=== PATIENT | male | born 1980 | race American Indian/Alaskan Native ===

== ENCOUNTER 2019-04-23 02:40 | Emergency (ER) | payer OTHER ==
[~2019-04-23] VITALS: Ht 165.1 cm; Wt 136.1 kg
[~2019-04-23 02:40] MED LIST: AZIT250 PO; Azithromycin250 MG PO; CARV3.125 PO; CEPH500 PO; CHLO25B PO; CLARITIN10 MG PO; CLIN300 PO; CODGUAEL PO; ERYT500 PO; FISH1000 PO; HYDACE5 PO; LISI5 PO; Metformin HCl500 M1 PO; OTC COUGH MED; PRED20 PO; PROM25 PO; Potassium Chlo10 ME1 PO
[2019-04-23] MEDS ORDERED: METF500 (03:09)
[2019-04-23 03:33] LABS: Source, Urine Voided
[2019-04-23 03:38] LABS: Bilirubin, Urine Neg (Neg); Blood, Urine 4+ (Neg); Glucose Qualitative, Urine Neg (Neg); Ketones, Urine Neg (Neg); Leukocyte Esterase, Urine 1+ (Neg); Nitrite, Urine Neg (Neg); Protein, Urine 2+ (Neg); Specific Gravity, Urine 1.025 (1.003-1.022); Urobilinogen, Urine 1+ (Normal)
[2019-04-23 03:43] LABS: Appearance, Urine Hazy (Clear); Color, Urine Yellow (P-Yellow)
[2019-04-23 03:44] LABS: Amorphous Light (0-Heavy); Bacteria Mod /hpf; Mucus Light (0-Heavy); Red Blood Cells, Urine 25-50 /hpf (0-2); Squamous Epithelial Cells Mod /hpf (Few); White Blood Cells, Urine 0-2 /hpf (0-5)
[2019-04-23 03:50] LABS: BASOPHILS ABSOLUTE AUTO 0.03 K/mm3 (0.00-0.23); BASOPHILS PERCENT AUTO 0 % (0-2); EOSINOPHILS ABSOLUTE AUTO 0.21 K/mm3 (0.00-0.68); EOSINOPHILS PERCENT AUTO 2 % (0-6); Hematocrit 49.7 % (37.0-53.0); Hemoglobin 15.2 g/dL (13.5-17.5); IMMATURE GRAN ABSOLUTE AUTO 0.03 K/mm3 (0.00-0.10); IMMATURE GRAN PERCENT AUTO 0 % (0-1); LYMPHOCYTES ABSOLUTE AUTO 1.06 K/mm3 (0.84-5.20); LYMPHOCYTES PERCENT AUTO 11 % (21-46); MONOCYTES ABSOLUTE AUTO 0.52 K/mm3 (0.16-1.47); MONOCYTES PERCENT AUTO 6 % (4-13); Mean Corpuscular HGB 28.7 pg (26.0-34.0); Mean Corpuscular HGB Conc 30.6 g/dL (31.5-36.5); Mean Corpuscular Volume 94 fL (80-100); Mean Platelet Volume 9.7 fL (9.1-12.4); NEUTROPHILS ABSOLUTE AUTO 7.42 K/mm3 (1.96-9.15); NEUTROPHILS PERCENT AUTO 80 % (41-73); Platelet Count 225 K/mm3 (150-400); RDW Coefficient Variation 15.2 % (11.7-14.2); RDW Standard Deviation 51.8 fL (35.1-46.3); White Blood Cell Count 9.27 K/mm3 (4.00-11.30)
[2019-04-23 04:08] LABS: Alanine Aminotransfer (ALT/SGP 25 U/L (12-78); Albumin, Blood 3.1 g/dL (3.4-5.0); Albumin/Globulin Ratio 0.6 (0.8-1.8); Alk Phos 96 U/L (50-136); Anion Gap 2 mmol/L (6-16); Aspartate Aminotrans (AST/SGOT 17 U/L (12-37); Bilirubin, Total 0.3 mg/dL (0.1-1.0); Blood Urea Nitrogen 16 mg/dL (8-24); Bun/Creatinine Ratio 18.4 (12.0-20.0); CO2, Blood 31 mmol/L (21-32); Calcium, Blood 8.3 mg/dL (8.5-10.1); Chloride, Blood 105 mmol/L (98-108); Creatinine, Blood 0.87 mg/dL (0.60-1.20); Globulin, Blood 4.8 g/dL (2.2-4.0); Glomerular Filtration Rate >60 (60-); Glucose, Blood 149 mg/dL (70-99); Potassium, Blood 4.5 mmol/L (3.5-5.5); Sodium, Blood 138 mmol/L (136-145); Total Protein, Blood 7.9 g/dL (6.4-8.2)
[2019-04-23] MEDS ORDERED: Keflex500 MG PO (04:59)
== END 2019-04-23 07:17 | disposition home or self-care (01) ==
LOC: ER 02:40
PROVIDERS: Emergency Medicine
DX: N20.1 Calculus of ureter (principal); J18.9 Pneumonia, unspecified organism; E11.9 Type 2 diabetes mellitus without complications; Z79.84 Long term (current) use of oral hypoglycemic drugs; Z87.891 Personal history of nicotine dependence; Z88.0 Allergy status to penicillin
CPT/HCPCS: 36415; 74176; 80053; 81001; 83690; 85025; 87086; 96374; 96375; 99284-25; A9270; A9270-GY; J1170; J1885; J2405; J7030

== ENCOUNTER 2020-06-09 18:21 | Inpatient (IN) | payer OTHER, SELFPAY ==
[~2020-06-09] VITALS: Ht 165.1 cm; Wt 155.1 kg
[~2020-06-09 18:21] MED LIST changes: -ACET325 PO; -FURO40 PO; -IPRAT-ALBUT 0.5-3 ML INH; -LISI20 PO
[2020-06-09 18:49] LABS: BASOPHILS ABSOLUTE AUTO 0.03 K/mm3 (0.00-0.23); BASOPHILS PERCENT AUTO 0 % (0-2); EOSINOPHILS ABSOLUTE AUTO 0.27 K/mm3 (0.00-0.68); EOSINOPHILS PERCENT AUTO 3 % (0-6); Hemoglobin 16.9 g/dL (13.5-17.5); IMMATURE GRAN ABSOLUTE AUTO 0.02 K/mm3 (0.00-0.10); IMMATURE GRAN PERCENT AUTO 0 % (0-1); LYMPHOCYTES ABSOLUTE AUTO 1.48 K/mm3 (0.84-5.20); LYMPHOCYTES PERCENT AUTO 15 % (21-46); MONOCYTES ABSOLUTE AUTO 0.57 K/mm3 (0.16-1.47); MONOCYTES PERCENT AUTO 6 % (4-13); Mean Corpuscular Volume 90 fL (80-100); Mean Platelet Volume 9.6 fL (9.1-12.4); NEUTROPHILS ABSOLUTE AUTO 7.86 K/mm3 (1.96-9.15); NEUTROPHILS PERCENT AUTO 77 % (41-73); Platelet Count 231 K/mm3 (150-400); RDW Coefficient Variation 17.2 % (11.7-14.2); RDW Standard Deviation 53.1 fL (35.1-46.3); White Blood Cell Count 10.23 K/mm3 (4.00-11.30)
[2020-06-09 18:58] LABS: Hematocrit 58.3 % (37.0-53.0)
[2020-06-09 19:06] LABS: Alanine Aminotransfer (ALT/SGP 44 U/L (12-78); Albumin/Globulin Ratio 0.7 (0.8-1.8); Alk Phos 106 U/L (50-136); Anion Gap 0 mmol/L (6-16); Aspartate Aminotrans (AST/SGOT 24 U/L (12-37); Bilirubin, Total 0.6 mg/dL (0.1-1.0); Blood Urea Nitrogen 13 mg/dL (8-24); Bun/Creatinine Ratio 14.3 (12.0-20.0); CO2, Blood 32 mmol/L (21-32); Calcium, Blood 8.3 mg/dL (8.5-10.1); Chloride, Blood 109 mmol/L (98-108); Creatinine, Blood 0.91 mg/dL (0.60-1.20); Globulin, Blood 4.5 g/dL (2.2-4.0); Glomerular Filtration Rate >60 (60-); Glucose, Blood 107 mg/dL (70-99); Potassium, Blood 4.6 mmol/L (3.5-5.5); Sodium, Blood 141 mmol/L (136-145); Total Protein, Blood 7.5 g/dL (6.4-8.2)
[2020-06-10 00:14] LABS: Source, Urine Clean Catch
[2020-06-10 00:17] LABS: Bilirubin, Urine Neg (Neg); Blood, Urine 1+ (Neg); Glucose Qualitative, Urine Neg (Neg); Ketones, Urine Neg (Neg); Leukocyte Esterase, Urine Neg (Neg); Nitrite, Urine Neg (Neg); Protein, Urine 3+ (Neg); Specific Gravity, Urine 1.025 (1.003-1.022); Urobilinogen, Urine 1+ (Normal)
[2020-06-10 00:18] LABS: Appearance, Urine Clear (Clear); Color, Urine Yellow (P-Yellow)
[2020-06-10 00:25] LABS: Amorphous Light (0-Heavy); Bacteria Few /hpf; Mucus Light (0-Heavy); Squamous Epithelial Cells Few /hpf (Few); White Blood Cells, Urine 0-2 /hpf (0-5)
--- NOTE | 2020-06-10 02:37 | NUR ---
ADMIT NOTE PT ADMITTED FROM ER THIS SHIFT. HANDOFF RECEIVED FROM ER NURSE VERONICA. PT TRANSPORTED TO FLOOR VIA GURNEY. PT ORIENTED TO UNIT. CALL BUTTON WITHIN REACH. PERSONAL POSSESSIONS WITH PT. 3 LPM O2 VIA NC ORDERED. TELEMETRY MONITORING APPLIED AND VERIFIED ACTIVE. BIPAP ORDERED FROM RESPIRATORY IS APPLIED.
--- NOTE | 2020-06-10 04:09 | NUR ---
SHIFT SUMMARY ADMITTED FROM ER THIS SHIFT FOR HYPOXIC RESPIRATORY FAILURE. FULL CODE. TELEMETRY:NSR @ 75 BPM. BIPAP AT [facility] AT HOME. THIS SHIFT HE DID DESATURATE TO 84% WITH OUR CPAP, THE O2 BLEED IN WAS INCREASED. PT IS INDEPENDENT IN ROOM, BRP. HE HAS A HX OF DM2 (NONCOMPLIANT WITH GLUCOSE CHECKS AND METFORMIN USE), RAVI, AND CHF. HE IS MORBIDLY OBESE. HIS COVID TEST WAS NEGATIVE AT THE [facility]. HE IS A&O X4.
[2020-06-10 05:30] LABS: BASOPHILS ABSOLUTE AUTO 0.03 K/mm3 (0.00-0.23); BASOPHILS PERCENT AUTO 0 % (0-2); EOSINOPHILS ABSOLUTE AUTO 0.32 K/mm3 (0.00-0.68); EOSINOPHILS PERCENT AUTO 3 % (0-6); Hemoglobin 16.6 g/dL (13.5-17.5); IMMATURE GRAN ABSOLUTE AUTO 0.03 K/mm3 (0.00-0.10); IMMATURE GRAN PERCENT AUTO 0 % (0-1); LYMPHOCYTES ABSOLUTE AUTO 1.41 K/mm3 (0.84-5.20); LYMPHOCYTES PERCENT AUTO 14 % (21-46); MONOCYTES ABSOLUTE AUTO 0.71 K/mm3 (0.16-1.47); MONOCYTES PERCENT AUTO 7 % (4-13); Mean Corpuscular HGB 26.9 pg (26.0-34.0); Mean Corpuscular HGB Conc 29.3 g/dL (31.5-36.5); Mean Corpuscular Volume 92 fL (80-100); Mean Platelet Volume 9.3 fL (9.1-12.4); NEUTROPHILS PERCENT AUTO 75 % (41-73); Platelet Count 214 K/mm3 (150-400); RDW Coefficient Variation 17.7 % (11.7-14.2); RDW Standard Deviation 54.9 fL (35.1-46.3); Red Blood Cell Count 6.17 M/mm3 (4.30-5.90)
[2020-06-10 05:46] LABS: Hematocrit 56.7 % (37.0-53.0)
[2020-06-10 06:25] LABS: Alanine Aminotransfer (ALT/SGP 42 U/L (12-78); Albumin, Blood 2.9 g/dL (3.4-5.0); Albumin/Globulin Ratio 0.7 (0.8-1.8); Alk Phos 103 U/L (50-136); Anion Gap 0 mmol/L (6-16); Aspartate Aminotrans (AST/SGOT 17 U/L (12-37); Blood Urea Nitrogen 15 mg/dL (8-24); Bun/Creatinine Ratio 16.9 (12.0-20.0); CO2, Blood 38 mmol/L (21-32); Calcium, Blood 8.6 mg/dL (8.5-10.1); Chloride, Blood 104 mmol/L (98-108); Creatinine, Blood 0.89 mg/dL (0.60-1.20); Globulin, Blood 4.3 g/dL (2.2-4.0); Glomerular Filtration Rate >60 (60-); Glucose, Blood 110 mg/dL (70-99); Sodium, Blood 142 mmol/L (136-145); Total Protein, Blood 7.2 g/dL (6.4-8.2)
--- NOTE | 2020-06-10 13:04 | NUR ---
Echocardiogram completed.
--- NOTE | 2020-06-10 17:23 | NUR ---
SHIFT SUMMARY NO ACUTE CHANGES THIS SHIFT, VSS, REMAINS ON 3.5 L/MIN AND SATING 90-91%. PT DID NOT RECIEVE ANY LASIX DURING MY SHIFT BECAUSE HE RECIEVED A DOSE THE NIGHT BEFORE. PT REPORTED HE WAS UP ABOUT EVERY HOUR URINATING LAST NIGHT BUT WAS NOT USING A URINAL BECAUSE TO MEASURE OUTPUT BECAUSE HE DID NOT HAVE ONE. PT HAS BEEN INSTRUCTED TO USE URINAL FROM NOW FOR MORE ACCURATE I&O MEASURING. PT REPORTS HE FEELS THE SWELLING IN HIS LEGS HAS DECREASED AND THEY DO NOT FEEL TIGHT. HE ALSO DENIES SOB OR ANY RESPIRATORY OR CARDIAC DISTRESS. PT REMAINS INDEPENDENT IN THE ROOM AND CALLS APPROPRIATELY IF NEEDED. WAS PROVIDED TYLENOL X1 THIS SHIFT FOR A HEADACHE, TX WAS EFFECTIVE. PT IS NOW SITTING UP IN BED WATCHING TV. CALL LIGHT IS WITHIN REACH.
--- NOTE | 2020-06-11 05:20 | NUR ---
SHIFT SUMMARY: VSS. AFEB. 02 91% ON 3.5L VIA NC WHILE AWAKE AND 4 L BLEED IN TO CPAP. PT WEARING CPAP ALL NIGHT. LS DIM THROUGHOUT. PT DENIES COUGH. +2 PITTING EDEMA TO BLE, PT STATES THAT SWELLING IN LE IS NOTICIBLY IMPROVED IS SOB. STATES HE IS FEELING GENERALLY BETTER. INDEPENDENT IN ROOM. PT ENCOURAGED TO VOID IN URINALS FOR OUTPUT TRACKING, HAS BEEN COOPERATIVE W/ THIS. NEGATIVE FLUID BALANCE. WCTM.
[2020-06-11 05:33] LABS: BASOPHILS ABSOLUTE AUTO 0.02 K/mm3 (0.00-0.23); BASOPHILS PERCENT AUTO 0 % (0-2); EOSINOPHILS ABSOLUTE AUTO 0.28 K/mm3 (0.00-0.68); EOSINOPHILS PERCENT AUTO 3 % (0-6); Hemoglobin 16.4 g/dL (13.5-17.5); IMMATURE GRAN ABSOLUTE AUTO 0.04 K/mm3 (0.00-0.10); IMMATURE GRAN PERCENT AUTO 0 % (0-1); LYMPHOCYTES ABSOLUTE AUTO 1.03 K/mm3 (0.84-5.20); LYMPHOCYTES PERCENT AUTO 11 % (21-46); MONOCYTES ABSOLUTE AUTO 0.56 K/mm3 (0.16-1.47); MONOCYTES PERCENT AUTO 6 % (4-13); Mean Corpuscular HGB 26.5 pg (26.0-34.0); Mean Corpuscular HGB Conc 29.2 g/dL (31.5-36.5); Mean Corpuscular Volume 91 fL (80-100); Mean Platelet Volume 9.4 fL (9.1-12.4); NEUTROPHILS PERCENT AUTO 80 % (41-73); Platelet Count 202 K/mm3 (150-400); RDW Coefficient Variation 17.1 % (11.7-14.2); RDW Standard Deviation 54.4 fL (35.1-46.3); Red Blood Cell Count 6.18 M/mm3 (4.30-5.90); White Blood Cell Count 9.43 K/mm3 (4.00-11.30)
[2020-06-11 05:52] LABS: Hematocrit 56.2 % (37.0-53.0)
[2020-06-11 05:59] LABS: Alanine Aminotransfer (ALT/SGP 34 U/L (12-78); Albumin, Blood 2.7 g/dL (3.4-5.0); Albumin/Globulin Ratio 0.6 (0.8-1.8); Alk Phos 101 U/L (50-136); Anion Gap 1 mmol/L (6-16); Aspartate Aminotrans (AST/SGOT 21 U/L (12-37); Bilirubin, Total 0.9 mg/dL (0.1-1.0); Blood Urea Nitrogen 15 mg/dL (8-24); Bun/Creatinine Ratio 20.3 (12.0-20.0); CO2, Blood 36 mmol/L (21-32); Calcium, Blood 8.4 mg/dL (8.5-10.1); Chloride, Blood 102 mmol/L (98-108); Creatinine, Blood 0.74 mg/dL (0.60-1.20); Globulin, Blood 4.3 g/dL (2.2-4.0); Glomerular Filtration Rate >60 (60-); Glucose, Blood 103 mg/dL (70-99); Potassium, Blood 4.5 mmol/L (3.5-5.5); Sodium, Blood 139 mmol/L (136-145)
[2020-06-11] MEDS ORDERED: ACET325 PO (14:45)
[2020-06-11] MEDS ORDERED: FURO40 PO (14:46)
[2020-06-11] MEDS ORDERED: IPRAT-ALBUT 0.5-3 ML INH (14:47)
[2020-06-11] MEDS ORDERED: LISI20 PO (14:48)
--- NOTE | 2020-06-11 16:45 | NUR ---
DISCHARGE SUMMARY PT AxOx4. PLEASANT AND COOPERATIVE WITH CARE. INDEPENDENT IN THE ROOM. PT DISCHARGING HOME TODAY. PT ON 2L O2 VIA NC, BREATHING WITHOUT DIFFICULTY. HOME O2 EVAL DONE, DETERMINED PT NEEDS TO GO HOME ON O2. CASI SORTOVERED O2 PRIOR TO DC. DC INSTRUCTIONS DISCUSSED WITH PATIENT, INCLUDING DC MEDICATIONS, MEDICAL EQUIPMENT NEEDED AND FOLLOW UP APPOINTMENTS. UNABLE TO MAKE FOLLOW UP APPOINTMENT WITH PCP. MESSAGE LEFT FOR CONTROLLER OPERATIONS AND HR MANAGER TO FOLLOW UP ON SATURDAY DR CERVANTES WANTS PATIENT TO BE SEEN FOR FOLLOW UP IN 2-3 DAYS. PT VERBALIZES UNDERSTANDING OF INSTRUCTIONS. NEBULIZER AND ADDITIONAL O2 TO BE DELIVERED TO PT'S. PT DENIES ANY FURTHER QUESTIONS AT THIS TIME. VITALS REVIEWED. PT SAFELY ESCORTED OUT VIA WC WITH THIS RN. HOME THIS EVENING
== END 2020-06-11 16:50 | disposition home or self-care (01) | DRG 291 ==
LOC: ER 18:21 → MEDS 22:41 → ER 22:41 → MEDS 22:48
PROVIDERS: Internal Medicine; Physician Assistant; ADMIT Internal Medicine
DX: I11.0 Hypertensive heart disease with heart failure (principal); J96.01 Acute respiratory failure with hypoxia; Z68.43 Body mass index [BMI] 50.0-59.9, adult; I50.33 Acute on chronic diastolic (congestive) heart failure; I42.0 Dilated cardiomyopathy; G47.33 Obstructive sleep apnea (adult) (pediatric); I16.0 Hypertensive urgency; E11.9 Type 2 diabetes mellitus without complications; E66.9 Obesity, unspecified; Z88.0 Allergy status to penicillin; Z87.891 Personal history of nicotine dependence
CPT/HCPCS: 36415; 80053; 81001; 82947; 85025; 85379; 93005; 93010; 93306; 94660; 94761; 94762; 96372; 96374; 99285-25; A9270; G0378; J1650; J1940

== ENCOUNTER → 2020-06-09 | Outpatient (CLI) | payer OTHER ==
[~2020-06-09] MED LIST changes: +ACET325 PO; +FURO40 PO; +IPRAT-ALBUT 0.5-3 ML INH; +Keflex500 MG PO; +LISI20 PO; +METF500
[2020-06-09 17:10] LABS: Anion Gap 2 mmol/L (6-16); Blood Urea Nitrogen 14 mg/dL (8-24); CO2, Blood 36 mmol/L (21-32); Calcium, Blood 8.8 mg/dL (8.5-10.1); Chloride, Blood 106 mmol/L (98-108); Creatinine, Blood 1.08 mg/dL (0.60-1.20); Glomerular Filtration Rate >60 (60-); Glucose, Blood 106 mg/dL (70-99); Potassium, Blood 4.6 mmol/L (3.5-5.5); Sodium, Blood 144 mmol/L (136-145)
[2020-06-09 17:13] LABS: Troponin I <0.017 ng/mL (0.000-0.040)
== END | disposition home or self-care (01) ==
LOC: LAB SHORT 16:52
PROVIDERS: Physician Assistant
DX: I50.9 Heart failure, unspecified (principal); R06.00 Dyspnea, unspecified
CPT/HCPCS: 80048; 83880; 84484

== ENCOUNTER 2021-02-06 10:45 | Inpatient (IN) | payer OTHER ==
[~2021-02-06] VITALS: Ht 152.4 cm; Wt 154.2 kg
[~2021-02-06 10:45] MED LIST changes: +ACET325 PO; +FURO40 PO; +IPRAT-ALBUT 0.5-3 ML INH; +LISI20 PO
[2021-02-06 11:58] LABS: BASOPHILS ABSOLUTE AUTO 0.03 K/mm3 (0.00-0.23); BASOPHILS PERCENT AUTO 0 % (0-2); EOSINOPHILS ABSOLUTE AUTO 0.25 K/mm3 (0.00-0.68); EOSINOPHILS PERCENT AUTO 3 % (0-6); Hemoglobin 16.7 g/dL (13.5-17.5); IMMATURE GRAN ABSOLUTE AUTO 0.02 K/mm3 (0.00-0.10); IMMATURE GRAN PERCENT AUTO 0 % (0-1); LYMPHOCYTES ABSOLUTE AUTO 1.24 K/mm3 (0.84-5.20); LYMPHOCYTES PERCENT AUTO 12 % (21-46); MONOCYTES ABSOLUTE AUTO 0.56 K/mm3 (0.16-1.47); MONOCYTES PERCENT AUTO 6 % (4-13); Mean Corpuscular HGB 26.8 pg (26.0-34.0); Mean Corpuscular HGB Conc 28.7 g/dL (31.5-36.5); Mean Corpuscular Volume 93 fL (80-100); Mean Platelet Volume 9.5 fL (9.1-12.4); NEUTROPHILS ABSOLUTE AUTO 7.89 K/mm3 (1.96-9.15); NEUTROPHILS PERCENT AUTO 79 % (41-73); Platelet Count 200 K/mm3 (150-400); RDW Coefficient Variation 16.2 % (11.7-14.2); RDW Standard Deviation 54.4 fL (35.1-46.3); Red Blood Cell Count 6.23 M/mm3 (4.30-5.90); White Blood Cell Count 9.99 K/mm3 (4.00-11.30)
[2021-02-06 12:03] LABS: Hematocrit 58.1 % (37.0-53.0)
[2021-02-06 12:23] LABS: Anion Gap 4 mmol/L (6-16); Blood Urea Nitrogen 15 mg/dL (8-24); Bun/Creatinine Ratio 16.9 (12.0-20.0); CO2, Blood 37 mmol/L (21-32); Calcium, Blood 8.7 mg/dL (8.5-10.1); Chloride, Blood 103 mmol/L (98-108); Creatinine, Blood 0.89 mg/dL (0.60-1.20); Glomerular Filtration Rate >60 (60-); Glucose, Blood 173 mg/dL (70-99); Potassium, Blood 4.3 mmol/L (3.5-5.5); Sodium, Blood 144 mmol/L (136-145); Troponin I <0.015 ng/mL (0.000-0.040)
[2021-02-06 12:43] LABS: Influenza A, PCR NEGATIVE (NEGATIVE); Influenza B, PCR NEGATIVE (NEGATIVE); Resp Syncytial Virus, PCR NEGATIVE (NEGATIVE); SARS-Cov-2 (COVID-19) PCR, MMC NEGATIVE (NEGATIVE)
[2021-02-07 00:57] LABS: BASOPHILS ABSOLUTE AUTO 0.03 K/mm3 (0.00-0.23); BASOPHILS PERCENT AUTO 0 % (0-2); EOSINOPHILS ABSOLUTE AUTO 0.33 K/mm3 (0.00-0.68); EOSINOPHILS PERCENT AUTO 3 % (0-6); Hemoglobin 17.1 g/dL (13.5-17.5); IMMATURE GRAN ABSOLUTE AUTO 0.03 K/mm3 (0.00-0.10); IMMATURE GRAN PERCENT AUTO 0 % (0-1); LYMPHOCYTES ABSOLUTE AUTO 1.41 K/mm3 (0.84-5.20); LYMPHOCYTES PERCENT AUTO 12 % (21-46); MONOCYTES ABSOLUTE AUTO 0.69 K/mm3 (0.16-1.47); MONOCYTES PERCENT AUTO 6 % (4-13); Mean Corpuscular HGB 27.2 pg (26.0-34.0); Mean Corpuscular HGB Conc 29.6 g/dL (31.5-36.5); Mean Corpuscular Volume 92 fL (80-100); Mean Platelet Volume 9.7 fL (9.1-12.4); NEUTROPHILS ABSOLUTE AUTO 8.95 K/mm3 (1.96-9.15); NEUTROPHILS PERCENT AUTO 78 % (41-73); Platelet Count 227 K/mm3 (150-400); RDW Coefficient Variation 16.2 % (11.7-14.2); RDW Standard Deviation 53.1 fL (35.1-46.3); Red Blood Cell Count 6.29 M/mm3 (4.30-5.90); White Blood Cell Count 11.44 K/mm3 (4.00-11.30)
[2021-02-07 01:00] LABS: Hematocrit 57.8 % (37.0-53.0)
[2021-02-07 01:45] LABS: Anion Gap 5 mmol/L (6-16); Blood Urea Nitrogen 15 mg/dL (8-24); Bun/Creatinine Ratio 16.4 (12.0-20.0); CO2, Blood 38 mmol/L (21-32); Chloride, Blood 97 mmol/L (98-108); Creatinine, Blood 0.91 mg/dL (0.60-1.20); Glomerular Filtration Rate >60 (60-); Glucose, Blood 137 mg/dL (70-99); Potassium, Blood 4.4 mmol/L (3.5-5.5); Sodium, Blood 140 mmol/L (136-145); Troponin I <0.015 ng/mL (0.000-0.040)
--- NOTE | 2021-02-07 06:20 | NUR ---
KEKE HAD SOME LIGHT CRACLES IN HIS LUNGS UPON AUSCULTATION. SLEPT WITH HIS CPAP BUT HIS SPO2 REMAINED BETWEEN 84-89. WAS PUT ON A BIPAP BY RT THEN HIS SPO2 SUSTAINED 89-92.
--- NOTE | 2021-02-07 11:32 | NUR ---
Provided heart failure diet education. Reviewed low sodium diet recommendations and top contributors of dietary sodium. Encouraged pt to prepare extra dinner to have leftovers to take to work (if storage space is available) instead of getting lunch from vending machine. Discussed that cooking meals at home is the best way to limit sodium. Encouraged pt to read nutrition labels at store to determine sodium content of products. Reviewed ways to limit sodium when eating out. Pt asked questions and was eager to learn. Moderate compliance expected.
--- NOTE | 2021-02-07 18:48 | NUR ---
SHIFT SUMMARY PT AA&OX4. AMBULATING AROUND ROOM FREELY. NO C/O PAIN, SOB OR N/V VOICED AT THIS TIME. VSS. NAD NOTED. RECEIVED IV LASIX AND VOIDING LARGE AMOUNTS. TOLERATED MEALS WELL. MEDIUM SIZE BM TODAY. WILL CONTINUE TO MONITOR IN CARE
--- NOTE | 2021-02-08 04:28 | NUR ---
KEEK SLEPT WITH HIS BIPAP, SPO2 REMAINED IN THE 90'S. HE GOT UP AND STRETCH A COUPLE OF TIMES BETWEEN 1-2AM BECAUSE OF SOME BACK PAIN AND CRAMP IN HIS LEGS THEN WENT BACK TO SLEEP FOR THE REST OF THE NIGHT. VITALS WERE STABLE
[2021-02-08 04:58] LABS: BASOPHILS ABSOLUTE AUTO 0.03 K/mm3 (0.00-0.23); BASOPHILS PERCENT AUTO 0 % (0-2); EOSINOPHILS ABSOLUTE AUTO 0.48 K/mm3 (0.00-0.68); EOSINOPHILS PERCENT AUTO 5 % (0-6); Hemoglobin 16.8 g/dL (13.5-17.5); IMMATURE GRAN ABSOLUTE AUTO 0.01 K/mm3 (0.00-0.10); IMMATURE GRAN PERCENT AUTO 0 % (0-1); LYMPHOCYTES ABSOLUTE AUTO 1.39 K/mm3 (0.84-5.20); LYMPHOCYTES PERCENT AUTO 13 % (21-46); MONOCYTES ABSOLUTE AUTO 0.68 K/mm3 (0.16-1.47); MONOCYTES PERCENT AUTO 7 % (4-13); Mean Corpuscular HGB 27.4 pg (26.0-34.0); Mean Corpuscular HGB Conc 30.1 g/dL (31.5-36.5); Mean Corpuscular Volume 91 fL (80-100); Mean Platelet Volume 10.3 fL (9.1-12.4); NEUTROPHILS ABSOLUTE AUTO 7.79 K/mm3 (1.96-9.15); NEUTROPHILS PERCENT AUTO 75 % (41-73); Platelet Count 207 K/mm3 (150-400); RDW Coefficient Variation 16.3 % (11.7-14.2); RDW Standard Deviation 51.5 fL (35.1-46.3); Red Blood Cell Count 6.13 M/mm3 (4.30-5.90); White Blood Cell Count 10.38 K/mm3 (4.00-11.30)
[2021-02-08 05:01] LABS: Hematocrit 55.8 % (37.0-53.0)
[2021-02-08 05:58] LABS: Anion Gap 5 mmol/L (6-16); Blood Urea Nitrogen 18 mg/dL (8-24); Bun/Creatinine Ratio 19.2 (12.0-20.0); CO2, Blood 41 mmol/L (21-32); Chloride, Blood 91 mmol/L (98-108); Creatinine, Blood 0.94 mg/dL (0.60-1.20); Glomerular Filtration Rate >60 (60-); Glucose, Blood 108 mg/dL (70-99); Magnesium, Blood 1.8 mg/dL (1.6-2.4); Phosphorus, Blood 5.2 mg/dL (2.5-4.9); Sodium, Blood 137 mmol/L (136-145)
--- NOTE | 2021-02-08 10:54 | NUR ---
Echocardiogram completed.
--- NOTE | 2021-02-08 18:39 | NUR ---
SHIFT SUMMARY PATIENT AAOX4. SITTING UP AT BEDSIDE EATING DINNER TRAY. ON O2 AT 6L AND SATS STILL DROPPING IN THE HIGH 80S AFTER ACTIVITY BUT 93% AT REST. HAS NO C/O PAin, SOB OR N/V VOICED AT THIS TIME. DID TEACHING ON SODIUM DIET, WATER INTAKE AND RESTRICTIONS AND HOW TO WEIGHT DAILY AND NOTICE IF HE IS RETAINING ANY FLUIDS. WILL CONTINUE TO MONITOR IN CARE
--- NOTE | 2021-02-08 20:00 | NUR ---
ASSUMED CARE. AOX3, SITTING UP IN CHAIR. INDEPENDENT IN ROOM. LS FINE CRACKLES SCATTERED T/O. DYSPNEA WITH EXERTION, RECOVERY TIME W/IN 1 MIN. SATS AVERAGE IS 91-94% ON 6L OF HF NC. BASE IS RA. NO COUGH NOTED. DENIES CONGESTION. NO ORTHOPNEA AT THIS TIME. ENCOURAGED DEEP BREATHING EXERCISES. DISCUSSED CHF MONITORING AND PREVENTION. BLE EDEMA TIGHT NON-PITTING, FAINT PEDAL PULSES. GOOD APPETITE, FLUID INTAKE. VS WNL. SNACK GIVEN. CALL LIGHT WITH IN REACH.
--- NOTE | 2021-02-09 05:28 | NUR ---
SHIFT SUMMARY: VS WNL, AFEBRILE. INDEPENDENT IN THE ROOM. BS 121. LS FINE CRACKLES. DYSPENIC W/ EXERTION. WAS ABLE TO WALK TO BATHROOM AND BACK LAST NIGHT NO O2 SATS DROPPED TO HIGH 80'S, JUST STANDING 95% RA. WHEN TALKING MID 80'S. AVERAGE SATS ON 6L HF NC 94%. CPAP WHEN SLEEPING, AVERAGE SATS 87-90%. NO COUGH. BLE EDEMA TIGHT, NON-PITTING, WAS UP IN CHAIR MOST OF DAY. DISCUSSED ELEVATION, CHF MONITORING AND PREVENTION MEASURES. SHIFT INTAKE 450, OUTPUT 1100. ABLE TO MAKE NEEDS KNOWN. CALL LIGHT REMAINS IN REACH.
[2021-02-09 06:45] LABS: Anion Gap 7 mmol/L (6-16); Blood Urea Nitrogen 20 mg/dL (8-24); Bun/Creatinine Ratio 21.4 (12.0-20.0); CO2, Blood 41 mmol/L (21-32); Chloride, Blood 89 mmol/L (98-108); Creatinine, Blood 0.93 mg/dL (0.60-1.20); Glomerular Filtration Rate >60 (60-); Glucose, Blood 92 mg/dL (70-99); Phosphorus, Blood 4.6 mg/dL (2.5-4.9); Potassium, Blood 4.1 mmol/L (3.5-5.5); Sodium, Blood 137 mmol/L (136-145)
--- NOTE | 2021-02-09 18:28 | NUR ---
SHIFT SUMMARY PATIENT AA&OX4. SITTING UP AT BEDSIDE IN CHAIR EATING DINNER. BLOOD SUGAR WNL. O2 AT 5L BNC AND SATS 95%. BLOOD PRESSURE ELEVATED SINCE AM AND NOTIFIED WILL BE STARTED ON NEW BP MEDS AT BEDTIME. HE HAS NO C/O PAIN, N/V, SOB OR DISCOMFORT VOICED AT THIS TIME. INSTRUCTED ON 1500 CC FLUID RESTRICTION. AMBULATING AROUND ROOM WITH NO ISSUES. WILL CONTINUE TO MONITOR IN CARE.
--- NOTE | 2021-02-10 05:18 | NUR ---
SHIFT SUMMARY PT A/O X4; PLEASANT AND COOPERATIVE WITH CARE. IND IN THE ROOM. ON 5 LITERS HIGH FLOW O2 DURING THE DAY AND BIPAP AT [facility]. HARD FOR THE BIPAP TO GET A GOOD SEAL DUE TO THE PATIENT'S [place]. PT SATTING IN THE LOW 90'S AT REST AND IN THE LOW 80'S WITH ACTIVITY. NEW BP MEDICATION STARTED DUE TO PATIENT'S HTN. VSS. WILL REPORT TO PHILLIP RN.
[2021-02-10] MEDS ORDERED: AZIT250 PO (14:25)
[2021-02-10] MEDS ORDERED: Prinivil10 MG PO (14:26)
[2021-02-10] MEDS ORDERED: CEPH500 PO (14:27)
--- NOTE | 2021-02-10 16:55 | NUR ---
discharge reviewed with pt. he verbalized understanding meds and instruct. iv pulled intact. no tele. pt dressed self. has o2 tank for home trip. will call when ready
--- NOTE | 2021-02-10 17:13 | NUR ---
DISCHARGE HOME NOTE PATIENT AAOX4. HAS NO C/O PAIN, SOB, N/V OR DISCOMFT VOICED. DISCHARGE PAPERWORK DISCUSSED WITH HIM. IV REMOVED FROM RIGHT AC. AMBULATES WITH NO ISSUES. VSS. NAD NOTED. BEING DISCHARGED WITH HOME O2 APPROVAL AND PORTABLE O2 TANK HAS BEEN DELIVERED TO ROOM AT BEDSIDE AND TAUGHT HOW TO USE WITH NO QUESTIONS ASKED. TAUGHT FLUID RESTRICTIONS AND SODIUM CONTROLL DIET. BEING ESCORTED OFF UNIT VIA WHEELCHAIR BY THE NURSE ADVOCATE TO CAR WITH FAMILY.
== END 2021-02-10 17:05 | disposition home or self-care (01) | DRG 291 ==
LOC: ER 10:45 → ERHOLD 15:52 → MEDS 18:51
PROVIDERS: Internal Medicine; Student in an Organized Health Care Education/Training Program; ADMIT Family Medicine
DX: I11.0 Hypertensive heart disease with heart failure (principal); J96.01 Acute respiratory failure with hypoxia; I50.33 Acute on chronic diastolic (congestive) heart failure; J18.9 Pneumonia, unspecified organism; Z68.44 Body mass index [BMI] 60.0-69.9, adult; G47.33 Obstructive sleep apnea (adult) (pediatric); E66.01 Morbid (severe) obesity due to excess calories; I42.0 Dilated cardiomyopathy; I27.20 Pulmonary hypertension, unspecified; E11.9 Type 2 diabetes mellitus without complications; Z20.822 Contact with and (suspected) exposure to COVID-19; Z91.11 Patient's noncompliance with dietary regimen; Z88.0 Allergy status to penicillin; Z71.3 Dietary counseling and surveillance
CPT/HCPCS: 0241U; 36415; 71045; 80048; 80069; 82947; 83036; 83735; 83880; 84145; 84443; 84484; 85025; 85379; 93005; 93010; 93971; 94660; 94761; 94762; 96374; 99285-25; A9270; C8929; J0696; J1650; J1815; J1940; Q9957

== ENCOUNTER → 2021-04-28 | Outpatient (CLI) | payer OTHER ==
[~2021-04-28] MED LIST changes: +Prinivil10 MG PO
[2021-04-28 13:50] LABS: Alanine Aminotransfer (ALT/SGP 32 U/L (12-78); Albumin, Blood 2.9 g/dL (3.4-5.0); Albumin/Globulin Ratio 0.7 (0.8-1.8); Alk Phos 101 U/L (40-126); Anion Gap 4 mmol/L (6-16); Aspartate Aminotrans (AST/SGOT 16 U/L (12-37); Bilirubin, Total 0.8 mg/dL (0.1-1.0); Blood Urea Nitrogen 14 mg/dL (8-24); Bun/Creatinine Ratio 17.9 (12.0-20.0); CO2, Blood 38 mmol/L (21-32); Calcium, Blood 8.3 mg/dL (8.5-10.1); Chloride, Blood 98 mmol/L (98-108); Creatinine, Blood 0.78 mg/dL (0.60-1.20); Globulin, Blood 4.3 g/dL (2.2-4.0); Glomerular Filtration Rate >60 (60-); Glucose, Blood 164 mg/dL (70-99); Potassium, Blood 4.6 mmol/L (3.5-5.5); Sodium, Blood 140 mmol/L (136-145); Total Protein, Blood 7.2 g/dL (6.4-8.2)
[2021-04-28 14:08] LABS: BASOPHILS ABSOLUTE AUTO 0.04 K/mm3 (0.00-0.23); BASOPHILS PERCENT AUTO 0 % (0-2); EOSINOPHILS PERCENT AUTO 2 % (0-6); Hemoglobin 17.3 g/dL (13.5-17.5); IMMATURE GRAN ABSOLUTE AUTO 0.05 K/mm3 (0.00-0.10); IMMATURE GRAN PERCENT AUTO 1 % (0-1); LYMPHOCYTES PERCENT AUTO 11 % (21-46); MONOCYTES ABSOLUTE AUTO 0.48 K/mm3 (0.16-1.47); MONOCYTES PERCENT AUTO 5 % (4-13); Mean Corpuscular HGB 26.6 pg (26.0-34.0); Mean Corpuscular HGB Conc 28.9 g/dL (31.5-36.5); Mean Corpuscular Volume 92 fL (80-100); Mean Platelet Volume 9.5 fL (9.1-12.4); NEUTROPHILS ABSOLUTE AUTO 7.99 K/mm3 (1.96-9.15); NEUTROPHILS PERCENT AUTO 81 % (41-73); Platelet Count 217 K/mm3 (150-400); RDW Coefficient Variation 18.4 % (11.7-14.2); RDW Standard Deviation 58.7 fL (35.1-46.3); White Blood Cell Count 9.86 K/mm3 (4.00-11.30)
[2021-04-28 14:30] LABS: Hematocrit 59.8 % (37.0-53.0)
== END | disposition home or self-care (01) ==
LOC: LAB SHORT 13:31 → LAB 13:31
PROVIDERS: Chiropractor
DX: R06.09 Other forms of dyspnea (principal)
CPT/HCPCS: 80053; 83880; 84484; 85025; 85379

== ENCOUNTER 2021-05-01 05:31 | Inpatient (IN) | payer OTHER ==
[~2021-05-01] VITALS: Ht 167.6 cm; Wt 146.8 kg
[2021-05-01 06:23] LABS: BASOPHILS ABSOLUTE AUTO 0.05 K/mm3 (0.00-0.23); BASOPHILS PERCENT AUTO 1 % (0-2); EOSINOPHILS ABSOLUTE AUTO 0.34 K/mm3 (0.00-0.68); EOSINOPHILS PERCENT AUTO 4 % (0-6); IMMATURE GRAN ABSOLUTE AUTO 0.04 K/mm3 (0.00-0.10); IMMATURE GRAN PERCENT AUTO 0 % (0-1); LYMPHOCYTES ABSOLUTE AUTO 1.05 K/mm3 (0.84-5.20); LYMPHOCYTES PERCENT AUTO 11 % (21-46); MONOCYTES ABSOLUTE AUTO 0.65 K/mm3 (0.16-1.47); MONOCYTES PERCENT AUTO 7 % (4-13); Mean Corpuscular HGB 26.6 pg (26.0-34.0); Mean Corpuscular HGB Conc 28.3 g/dL (31.5-36.5); Mean Corpuscular Volume 94 fL (80-100); Mean Platelet Volume 9.4 fL (9.1-12.4); NEUTROPHILS ABSOLUTE AUTO 7.19 K/mm3 (1.96-9.15); NEUTROPHILS PERCENT AUTO 77 % (41-73); Platelet Count 226 K/mm3 (150-400); RDW Coefficient Variation 18.1 % (11.7-14.2); RDW Standard Deviation 59.3 fL (35.1-46.3); Red Blood Cell Count 6.39 M/mm3 (4.30-5.90); White Blood Cell Count 9.32 K/mm3 (4.00-11.30)
[2021-05-01 06:47] LABS: Alanine Aminotransfer (ALT/SGP 26 U/L (12-78); Albumin, Blood 2.9 g/dL (3.4-5.0); Albumin/Globulin Ratio 0.6 (0.8-1.8); Alk Phos 96 U/L (50-136); Anion Gap 1 mmol/L (6-16); Aspartate Aminotrans (AST/SGOT 13 U/L (12-37); Bilirubin, Total 0.5 mg/dL (0.1-1.0); Blood Urea Nitrogen 17 mg/dL (8-24); Bun/Creatinine Ratio 20.1 (12.0-20.0); CO2, Blood 42 mmol/L (21-32); Chloride, Blood 96 mmol/L (98-108); Creatinine, Blood 0.85 mg/dL (0.60-1.20); Globulin, Blood 4.5 g/dL (2.2-4.0); Glomerular Filtration Rate >60 (60-); Glucose, Blood 167 mg/dL (70-99); Potassium, Blood 4.8 mmol/L (3.5-5.5); Sodium, Blood 139 mmol/L (136-145); Total Protein, Blood 7.4 g/dL (6.4-8.2)
[2021-05-01 10:02] LABS: Influenza A, PCR NEGATIVE (NEGATIVE); Influenza B, PCR NEGATIVE (NEGATIVE); Resp Syncytial Virus, PCR NEGATIVE (NEGATIVE); SARS-Cov-2 (COVID-19) PCR, MMC NEGATIVE (NEGATIVE)
--- NOTE | 2021-05-01 18:10 | NUR ---
SHIFT SUMMARY PATIENT ADMITTED FROM ER AT 1110. PATIENT SETTLED INTO ROOM. PATIENT DENIES PAIN, NAUSEA, AND SHORTNESS OF BREATH. PATIENT ON 4L VIA N/C. PATIENT MAINTAINING SATS ABOVE 90%. PATIENT DESATS WITH ACTIVITY. CPAP IN ROOM FOR HS. PATIENT IS INDEPENDENT IN ROOM. PATIENT IS EATING AND DRINKING WELL. PATIENT IS PLEASANT AND COOPERATIVE WITH CARE.
--- NOTE | 2021-05-01 21:27 | NUR ---
IV SITE FLUSHED BUT SLUGGISH. WILL MONITOR
--- NOTE | 2021-05-02 04:03 | NUR ---
NETWORK CONTRACT MANAGER SUMMARY HAS BEEN AWAKE AT INTERVALS, USUALLY DUE TO PULSE OX BEEPING DUE TO O2 SATS DROPPING INTO MID 80'S. CPAP IN USE. RECEIVED ATIVAN PO X 1 PER MD ORDERS FOR SLEEP. MED WAS EFFECTIVE. CALL LIGHT IN REACH. VSS. HOB REMAINS ELEVATED FOR BREATHING COMFORT. WILL CONTINUE TO MONITOR
[2021-05-02 04:43] LABS: BASOPHILS ABSOLUTE AUTO 0.04 K/mm3 (0.00-0.23); BASOPHILS PERCENT AUTO 0 % (0-2); EOSINOPHILS ABSOLUTE AUTO 0.36 K/mm3 (0.00-0.68); EOSINOPHILS PERCENT AUTO 4 % (0-6); Hemoglobin 17.8 g/dL (13.5-17.5); IMMATURE GRAN ABSOLUTE AUTO 0.02 K/mm3 (0.00-0.10); IMMATURE GRAN PERCENT AUTO 0 % (0-1); LYMPHOCYTES ABSOLUTE AUTO 1.41 K/mm3 (0.84-5.20); LYMPHOCYTES PERCENT AUTO 14 % (21-46); MONOCYTES ABSOLUTE AUTO 0.69 K/mm3 (0.16-1.47); MONOCYTES PERCENT AUTO 7 % (4-13); Mean Corpuscular HGB 26.4 pg (26.0-34.0); Mean Corpuscular HGB Conc 28.3 g/dL (31.5-36.5); Mean Corpuscular Volume 93 fL (80-100); Mean Platelet Volume 9.5 fL (9.1-12.4); NEUTROPHILS ABSOLUTE AUTO 7.63 K/mm3 (1.96-9.15); NEUTROPHILS PERCENT AUTO 75 % (41-73); Platelet Count 213 K/mm3 (150-400); RDW Coefficient Variation 18.9 % (11.7-14.2); RDW Standard Deviation 59.8 fL (35.1-46.3); Red Blood Cell Count 6.74 M/mm3 (4.30-5.90); White Blood Cell Count 10.15 K/mm3 (4.00-11.30)
[2021-05-02 04:52] LABS: Hematocrit 62.8 % (37.0-53.0)
[2021-05-02 05:09] LABS: Alanine Aminotransfer (ALT/SGP 27 U/L (12-78); Albumin, Blood 3.2 g/dL (3.4-5.0); Albumin/Globulin Ratio 0.7 (0.8-1.8); Alk Phos 96 U/L (50-136); Anion Gap 5 mmol/L (6-16); Aspartate Aminotrans (AST/SGOT 15 U/L (12-37); Bilirubin, Total 1.3 mg/dL (0.1-1.0); Blood Urea Nitrogen 20 mg/dL (8-24); Bun/Creatinine Ratio 23.4 (12.0-20.0); CO2, Blood 36 mmol/L (21-32); Calcium, Blood 9.1 mg/dL (8.5-10.1); Chloride, Blood 94 mmol/L (98-108); Creatinine, Blood 0.85 mg/dL (0.60-1.20); Globulin, Blood 4.8 g/dL (2.2-4.0); Glomerular Filtration Rate >60 (60-); Glucose, Blood 118 mg/dL (70-99); Magnesium, Blood 2.1 mg/dL (1.6-2.4); Potassium, Blood 4.2 mmol/L (3.5-5.5); Sodium, Blood 135 mmol/L (136-145)
--- NOTE | 2021-05-02 17:30 | NUR ---
SHIFT SUMMARY PATIENT IS ALERT AND ORIENTED X4. PATIENT HAS HAD NO ACUTE EVENTS THIS SHIFT. RESPIRATORY THERAPY HAS BEEN WORKING WITH PATIENT TO MAINTAIN OPTIMAL OXYGEN THERAPY. PATIENT IS CURRENTLY ON A BIPAP. VITAL SIGNS REVIEWED. BED IN LOCKED AND LOWEST POSITION. CALL LIGHT IN PLACE. PATIENT HAS BEEN RESTING MOST OF SHIFT WITH VARYING OXYGEN NEEDS. WILL MONITOR UNTIL SHIFT CHANGE.
--- NOTE | 2021-05-02 19:23 | NUR ---
AWAKE. HAVING BREATHING TREATMENT. RT AT BEDSIDE. HOB AT 45 DEGREES. CALL LIGHT IN REACH
--- NOTE | 2021-05-03 04:30 | NUR ---
HOTEL SECURITY OFFICER SUMMARY POWERGLIDE PLACED IN LEFT ARM DUE TO PREVIOUS IV ACCESS OCCLUSION. CONTINUES TO HAVE SLEEP APNEA, O2 SATS DROPPED INTO THE 70'S WHEN HIS NASALCANNULA WAS FOUND OUT OF HIS NOSTRILS. AWAKENED AND CANNULA PLACED BACK INTO NARES. SATS INCREASED TO THE 90'S AGAIN. ALERT AND ORIENTED. VSS. UP AD RADHA, ENCOURAGED TO COMPLY WITH O2 REGIMINE. CALL LIGHT IN REACH
[2021-05-03 07:56] LABS: Mean Corpuscular HGB 26.7 pg (26.0-34.0); Mean Corpuscular HGB Conc 28.9 g/dL (31.5-36.5); Mean Corpuscular Volume 93 fL (80-100); Mean Platelet Volume 9.7 fL (9.1-12.4); Platelet Count 212 K/mm3 (150-400); RDW Coefficient Variation 18.6 % (11.7-14.2); Red Blood Cell Count 6.73 M/mm3 (4.30-5.90); White Blood Cell Count 9.26 K/mm3 (4.00-11.30)
[2021-05-03 08:01] LABS: Hematocrit 62.3 % (37.0-53.0)
[2021-05-03 08:10] LABS: Anion Gap 1 mmol/L (6-16); Blood Urea Nitrogen 29 mg/dL (8-24); Bun/Creatinine Ratio 28.4 (12.0-20.0); CO2, Blood 41 mmol/L (21-32); Calcium, Blood 9.1 mg/dL (8.5-10.1); Chloride, Blood 94 mmol/L (98-108); Creatinine, Blood 1.02 mg/dL (0.60-1.20); Glomerular Filtration Rate >60 (60-); Glucose, Blood 112 mg/dL (70-99); Potassium, Blood 4.2 mmol/L (3.5-5.5); Sodium, Blood 136 mmol/L (136-145)
[2021-05-03 13:23] LABS: PCO2 Arterial 87.3 mmHg (35-45)
--- NOTE | 2021-05-03 13:30 | NUR ---
notified abg is in computer.
--- NOTE | 2021-05-03 15:48 | NUR ---
ALERT. ORIENTED. ON OXYGEN AND CONTINUOUS SAT MONITOR.ADVISED TO TAKE DEEP BREATH TROUGH NOSE WHEN HE HEARS MONITOR GO OFF. PATIENT COMPLIANT. MEDS ADJUSTED TO P.O. FROM IV. INDEPENDENT IN ROOM WITH STEADY GAIT TO BR. AWARE TO USE URINAL ON DIURETIC. NO C/O C.P. OR DISCOMFORT. ABLE TO MAKE HIS NEEDS KNOWN. TM
--- NOTE | 2021-05-04 04:31 | NUR ---
ALCOHOLISM WORKER SUMMARY PATIENT HAD A FAIR SHIFT. NO COMPLAINTS OVERNIGHT. HAD HIS CPAP ON. INITIALLY WAS NOT SATURATING ADEQUATELY. HE HAD TO SHAVE HIS [place] TO ACHIEVE THE NEEDED SEAL AROUND HIS MOUTH AND NOSE. HIS V/S WERE STABLE AND HE COOPERATED WITH CARE. WILL CONTINUE TO MONITOR HIM.
[2021-05-04 05:01] LABS: Hemoglobin 17.9 g/dL (13.5-17.5); Mean Corpuscular HGB 26.8 pg (26.0-34.0); Mean Corpuscular HGB Conc 29.4 g/dL (31.5-36.5); Mean Corpuscular Volume 91 fL (80-100); Mean Platelet Volume 9.3 fL (9.1-12.4); Platelet Count 199 K/mm3 (150-400); RDW Coefficient Variation 18.6 % (11.7-14.2); RDW Standard Deviation 58.8 fL (35.1-46.3); Red Blood Cell Count 6.68 M/mm3 (4.30-5.90); White Blood Cell Count 9.28 K/mm3 (4.00-11.30)
[2021-05-04 05:06] LABS: Hematocrit 60.9 % (37.0-53.0)
[2021-05-04 05:46] LABS: Anion Gap 4 mmol/L (6-16); Blood Urea Nitrogen 31 mg/dL (8-24); Bun/Creatinine Ratio 32.3 (12.0-20.0); CO2, Blood 37 mmol/L (21-32); Calcium, Blood 9.1 mg/dL (8.5-10.1); Chloride, Blood 93 mmol/L (98-108); Creatinine, Blood 0.96 mg/dL (0.60-1.20); Glomerular Filtration Rate >60 (60-); Glucose, Blood 121 mg/dL (70-99); Potassium, Blood 4.1 mmol/L (3.5-5.5); Sodium, Blood 134 mmol/L (136-145)
--- NOTE | 2021-05-04 18:21 | NUR ---
SHIFT SUMMARY NO ACUTE CHANGES THIS SHIFT. PT REPORTS FEELING MUCH BETTER AND HAS NO COMPLAINTS. PT REMAINS ON 6 LITERS O2 BUT DOES NOT FEEL DYSPNEIC. SATTING AT AROUND 91%. VSS. WILL REPORT TO PHILLIP RN.
--- NOTE | 2021-05-05 02:37 | NUR ---
FIRE ALARM OPERATOR SUMMARY PATIENT HAD A FAIR SHIFT. HE IS ALERT ORIENTED. HE DID NOT LODGE ANY COMPLAIN OVERNGHT. HE HAD HIS CPAP ON OVERNIGHT. WILL CONTINUE TO MONITOR HIM.
[2021-05-05 04:58] LABS: Hemoglobin 17.7 g/dL (13.5-17.5); Mean Corpuscular HGB Conc 29.7 g/dL (31.5-36.5); Mean Corpuscular Volume 91 fL (80-100); Mean Platelet Volume 9.3 fL (9.1-12.4); Platelet Count 189 K/mm3 (150-400); RDW Coefficient Variation 18.6 % (11.7-14.2); RDW Standard Deviation 57.9 fL (35.1-46.3); Red Blood Cell Count 6.56 M/mm3 (4.30-5.90)
[2021-05-05 04:59] LABS: Hematocrit 59.5 % (37.0-53.0)
[2021-05-05 05:46] LABS: Anion Gap 4 mmol/L (6-16); Blood Urea Nitrogen 30 mg/dL (8-24); CO2, Blood 34 mmol/L (21-32); Calcium, Blood 8.7 mg/dL (8.5-10.1); Chloride, Blood 97 mmol/L (98-108); Creatinine, Blood 0.91 mg/dL (0.60-1.20); Glomerular Filtration Rate >60 (60-); Glucose, Blood 113 mg/dL (70-99); Potassium, Blood 4.3 mmol/L (3.5-5.5); Sodium, Blood 135 mmol/L (136-145)
[2021-05-05] MEDS ORDERED: FURO20 PO (12:31)
[2021-05-05] MEDS ORDERED: LISI5 PO (12:32)
--- NOTE | 2021-05-05 17:47 | NUR ---
PATIENT STABLE ON 3L/OXYGEN. VITALS STABLE, CBG WNL NO SSI GIVEN. MD DISCHARGED PATIENT WITH HOME OXYGEN AND NEW CPAP MACHINE. RN PROVIDED DISCHARGE EDUCATION, PATIENT VERBILIZED UNDERSTANDING. LEFT UNIT AT 1520PM.
== END 2021-05-05 17:15 | disposition home or self-care (01) | DRG 291 ==
LOC: ER 05:31 → MEDS 08:47 → ENPENDDIS 05-05 11:49 → MEDS 05-05 17:15
PROVIDERS: Emergency Medicine; ADMIT Internal Medicine
PROC: 5A09457 Assistance with Respiratory Ventilation, 24-96 Consecutive Hours, Continuous Positive Airway Pressure (ICD-10-PCS; principal; 2021-05-01)
DX: I13.0 Hypertensive heart and chronic kidney disease with heart failure and stage 1 through stage 4 chronic kidney disease, or unspecified chronic kidney disease (principal); J96.01 Acute respiratory failure with hypoxia; I50.33 Acute on chronic diastolic (congestive) heart failure; Z68.43 Body mass index [BMI] 50.0-59.9, adult; Z20.822 Contact with and (suspected) exposure to COVID-19; I27.22 Pulmonary hypertension due to left heart disease; I50.814 Right heart failure due to left heart failure; J44.9 Chronic obstructive pulmonary disease, unspecified; E66.01 Morbid (severe) obesity due to excess calories; G47.33 Obstructive sleep apnea (adult) (pediatric); E11.22 Type 2 diabetes mellitus with diabetic chronic kidney disease; N18.9 Chronic kidney disease, unspecified; Z88.0 Allergy status to penicillin; Z91.19 Patient's noncompliance with other medical treatment and regimen; Z79.899 Other long term (current) drug therapy; Z87.891 Personal history of nicotine dependence
CPT/HCPCS: 0241U; 36415; 36600; 71045; 80048; 80053; 82803; 82947; 83036; 83735; 83880; 84484; 85025; 85027; 93005; 93010; 94640; 94660; 94761; 94762; 96374; 96375; 99285-25; A9270; C1751; J1120; J1650; J1940

== ENCOUNTER → 2023-10-29 | Outpatient (CLI) | payer OTHER ==
[~2023-10-29] MED LIST changes: +FURO20 PO
[2023-10-29 16:52] LABS: BASOPHILS ABSOLUTE AUTO 0.02 K/mm3 (0.00-0.23); BASOPHILS PERCENT AUTO 0 % (0-2); EOSINOPHILS ABSOLUTE AUTO 0.56 K/mm3 (0.00-0.68); EOSINOPHILS PERCENT AUTO 6 % (0-6); Hematocrit 49.1 % (37.0-53.0); Hemoglobin 14.9 g/dL (13.5-17.5); IMMATURE GRAN ABSOLUTE AUTO 0.02 K/mm3 (0.00-0.10); IMMATURE GRAN PERCENT AUTO 0 % (0-1); LYMPHOCYTES ABSOLUTE AUTO 1.07 K/mm3 (0.84-5.20); LYMPHOCYTES PERCENT AUTO 12 % (21-46); MONOCYTES ABSOLUTE AUTO 0.47 K/mm3 (0.16-1.47); MONOCYTES PERCENT AUTO 5 % (4-13); Mean Corpuscular HGB 28.7 pg (26.0-34.0); Mean Corpuscular HGB Conc 30.3 g/dL (31.5-36.5); Mean Corpuscular Volume 94 fL (80-100); NEUTROPHILS ABSOLUTE AUTO 6.89 K/mm3 (1.96-9.15); NEUTROPHILS PERCENT AUTO 76 % (41-73); Platelet Count 204 K/mm3 (150-400); RDW Coefficient Variation 18.6 % (11.7-14.2); RDW Standard Deviation 56.6 fL (35.1-46.3); White Blood Cell Count 9.03 K/mm3 (4.00-11.30)
[2023-10-29 16:56] LABS: Calcium, Blood 8.7 mg/dL (8.5-10.1); Creatinine, Blood 0.93 mg/dL (0.60-1.20); Potassium, Blood 3.9 mmol/L (3.5-5.5)
== END | disposition home or self-care (01) ==
LOC: LAB SHORT 16:48 → LAB 16:48
PROVIDERS: Family Medicine
DX: I50.9 Heart failure, unspecified (principal); L03.90 Cellulitis, unspecified
CPT/HCPCS: 80048; 83880; 85025

== ENCOUNTER 2024-03-26 16:24 | Inpatient (IN) | payer OTHER ==
[~2024-03-26] VITALS: Ht 165.1 cm; Wt 148.4 kg
[2024-03-26 17:17] LABS: BASOPHILS ABSOLUTE AUTO 0.02 K/mm3 (0.00-0.23); BASOPHILS PERCENT AUTO 0 % (0-2); EOSINOPHILS ABSOLUTE AUTO 0.16 K/mm3 (0.00-0.68); EOSINOPHILS PERCENT AUTO 2 % (0-6); Hematocrit 53.1 % (37.0-53.0); Hemoglobin 16.1 g/dL (13.5-17.5); IMMATURE GRAN ABSOLUTE AUTO 0.04 K/mm3 (0.00-0.10); IMMATURE GRAN PERCENT AUTO 1 % (0-1); LYMPHOCYTES ABSOLUTE AUTO 1.39 K/mm3 (0.84-5.20); LYMPHOCYTES PERCENT AUTO 16 % (21-46); MONOCYTES PERCENT AUTO 6 % (4-13); Mean Corpuscular HGB Conc 30.3 g/dL (31.5-36.5); Mean Corpuscular Volume 93 fL (80-100); Mean Platelet Volume 8.9 fL (9.1-12.4); NEUTROPHILS ABSOLUTE AUTO 6.37 K/mm3 (1.96-9.15); NEUTROPHILS PERCENT AUTO 75 % (41-73); NRBC ABSOLUTE 0.03 K/mm3 (0.00-0.02); NRBC Auto 0.4 /100 WBC (0.0-0.2); Platelet Count 215 K/mm3 (150-400); RDW Standard Deviation 54.7 fL (35.1-46.3); Red Blood Cell Count 5.74 M/mm3 (4.30-5.90); White Blood Cell Count 8.48 K/mm3 (4.00-11.30)
[2024-03-26] MEDS ORDERED: FARXIGA5 MG PO (17:52)
[2024-03-26] MEDS ORDERED: METFORMIN HCL500 M3 PO (17:52)
[2024-03-26] MEDS ORDERED: Prinivil10 MG PO (17:53)
[2024-03-26] MEDS ORDERED: FUROSEMIDE40 MG PO (17:57)
[2024-03-26 18:01] LABS: Albumin, Blood 3.3 g/dL (3.4-5.0); Albumin/Globulin Ratio 0.8 (0.8-1.8); Bilirubin, Total 0.9 mg/dL (0.1-1.0); Bun/Creatinine Ratio 12.6 (12.0-20.0); Calcium, Blood 8.2 mg/dL (8.5-10.1); Creatinine, Blood 0.87 mg/dL (0.60-1.20); Globulin, Blood 4.2 g/dL (2.2-4.0); Potassium, Blood 3.8 mmol/L (3.5-5.5); Total Protein, Blood 7.5 g/dL (6.4-8.2)
[2024-03-26] MEDS ORDERED: Furosemide 10 MG/ML 4ML Vial IV ONE (20:00)
[2024-03-26] MEDS ORDERED: Ondansetron HCl 2 MG / ML 2ML Vial IV PRN (21:10)
[2024-03-26] MEDS ORDERED: Furosemide 10 MG/ML 4ML Vial IV SCH (22:00)
[2024-03-27] VITALS (7 sets, daily range): BP systolic 129–164; BP diastolic 64–95
[2024-03-27 00:23] LABS: Adenovirus Not Detected (NOT DETECT); Bordetella pertussis Not Detected (NOT DETECT); Chlamydophila pneumoniae Not Detected (NOT DETECT); Coronavirus 229E Not Detected (NOT DETECT); Coronavirus HKU1 Not Detected (NOT DETECT); Coronavirus NL63 Not Detected (NOT DETECT); Coronavirus OC43 Not Detected (NOT DETECT); Human Metapneumovirus Not Detected (NOT DETECT); Human Rhinovirus/Enterovirus Not Detected (NOT DETECT); Influenza A/2009-H1 Not Detected (NOT DETECT); Influenza A/H1 Not Detected (NOT DETECT); Influenza A/H3 Not Detected (NOT DETECT); Influenza B Not Detected (NOT DETECT); Mycoplasma pneumoniae Not Detected (NOT DETECT); Parainfluenza Virus 1 Not Detected (NOT DETECT); Parainfluenza Virus 2 Not Detected (NOT DETECT); Parainfluenza Virus 3 Not Detected (NOT DETECT); Parainfluenza Virus 4 Not Detected (NOT DETECT); Respiratory Syncytial Virus Not Detected (NOT DETECT); SARS-Cov-2 (COVID-19), BioFire Not Detected (NOT DETECT)
[2024-03-27 06:09] LABS: BASOPHILS ABSOLUTE AUTO 0.02 K/mm3 (0.00-0.23); BASOPHILS PERCENT AUTO 0 % (0-2); EOSINOPHILS ABSOLUTE AUTO 0.27 K/mm3 (0.00-0.68); EOSINOPHILS PERCENT AUTO 3 % (0-6); Hematocrit 54.9 % (37.0-53.0); Hemoglobin 16.7 g/dL (13.5-17.5); IMMATURE GRAN ABSOLUTE AUTO 0.05 K/mm3 (0.00-0.10); IMMATURE GRAN PERCENT AUTO 1 % (0-1); LYMPHOCYTES PERCENT AUTO 14 % (21-46); MONOCYTES ABSOLUTE AUTO 0.59 K/mm3 (0.16-1.47); MONOCYTES PERCENT AUTO 7 % (4-13); Mean Corpuscular HGB 28.6 pg (26.0-34.0); Mean Corpuscular HGB Conc 30.4 g/dL (31.5-36.5); Mean Corpuscular Volume 94 fL (80-100); Mean Platelet Volume 9.5 fL (9.1-12.4); NEUTROPHILS PERCENT AUTO 76 % (41-73); NRBC ABSOLUTE 0.02 K/mm3 (0.00-0.02); NRBC Auto 0.2 /100 WBC (0.0-0.2); Platelet Count 223 K/mm3 (150-400); RDW Standard Deviation 56.9 fL (35.1-46.3); Red Blood Cell Count 5.84 M/mm3 (4.30-5.90); White Blood Cell Count 8.73 K/mm3 (4.00-11.30)
[2024-03-27 06:20] LABS: Bun/Creatinine Ratio 11.6 (12.0-20.0); Calcium, Blood 8.7 mg/dL (8.5-10.1); Creatinine, Blood 0.95 mg/dL (0.60-1.20); Magnesium, Blood 2.2 mg/dL (1.6-2.4); Potassium, Blood 4.1 mmol/L (3.5-5.5)
[2024-03-27] MEDS ORDERED: Insulin Human Lispro 100 Units/ML 3ML Syringe SC SCH (07:30)
[2024-03-27] MEDS ORDERED: Furosemide 10 MG/ML 4ML Vial IV SCH ×2 (09:00)
[2024-03-27] MEDS ORDERED: Enoxaparin 40 MG/0.4 ML SYR SC SCH (09:00)
[2024-03-27] MEDS ORDERED: Acetaminophen 325 MG TABLET PO ONE (09:20)
[2024-03-27] MEDS ORDERED: Acetaminophen 325 MG TABLET PO PRN (09:20)
[2024-03-27] MEDS ORDERED: Ibuprofen 600 MG Tab PO ONE (09:20)
--- NOTE | 2024-03-27 18:33 | NUR ---
ADMISSION: REPORT RECEIVED FROM SOCIAL MEDIA EXECUTIVE. PT TO UNIT AT ABOUT 1130. A/O , VSS. CONT. BIOX APPLIED. PT NEEDING 6L 02 VIA NC TO MAINTAIN SP02 ABOVE 90%. PT DENIES SOB WHILE AT REST, NO INCREASED WOB NOTED. PT ORIENTED TO ROOM AND CALL LIGHT. REMINDED OF FLUID RESTRICTION ORDERS. TELE BOX APPLIED AND VERIFIED BY TRADING MANAGER STUDENT. PT INSTRUCTED TO USE CALL LIGHT
--- NOTE | 2024-03-27 18:39 | NUR ---
SUMMARY: NO ACUTE CHANGE SINCE ADMIT. RT SET UP CPAP AT BEDSIDE FOR SLEEP. IV LASIX GIVEN TONIGHT. VSS, PT USING CALL LIGHT TO MAKE NEEDS KNOWN
[2024-03-27] MEDS ORDERED: Lisinopril 10 MG Tab PO SCH (19:00)
[2024-03-28 00:14] VITALS: BP 143/87
[2024-03-28 04:23] VITALS: BP 128/80
[2024-03-28 06:08] LABS: Bun/Creatinine Ratio 16.3 (12.0-20.0); Calcium, Blood 8.8 mg/dL (8.5-10.1); Creatinine, Blood 1.29 mg/dL (0.60-1.20); Potassium, Blood 4.2 mmol/L (3.5-5.5)
[2024-03-28] MEDS ORDERED: Insulin Human Lispro 100 Units/ML 3ML Syringe SC SCH (07:30)
[2024-03-28 07:32] VITALS: BP 114/64
--- NOTE | 2024-03-28 07:52 | NUR ---
SHIFT SUMMARY NOC. PT ADMITTED FOR HYPOXIA. PT A/O X3-4 AND WAS FORGETTFUL OF DATE/TIME. PT ON 6L VIA N/C WHILE AWAKE AND SWITCHED TO CPAP WHILE ASLEEP. PT FAILED CPAP AND WAS DESATTING AND UPGRADED TO BIPAP WITH INCREASED O2. PT DENIES SOB OR CHEST PAIN, SOB NOTED ON EXERTION. PT IS SBA FOR WEAKNESS AND CORD MANAGEMENT. PT VOIDING URINE AND RESTRICTING ORAL FLUIDS. CALL LIGHT IN REACH.
[2024-03-28] MEDS ORDERED: Empagliflozin 10 MG TAB PO SCH (09:00)
[2024-03-28] MEDS ORDERED: Loratadine 10 MG Tab PO SCH (09:00)
[2024-03-28] MEDS ORDERED: Citalopram Hydrobromide 20 MG Tab PO SCH (09:00)
[2024-03-28] MEDS ORDERED: Furosemide 10 MG/ML 4ML Vial IV SCH (13:00)
[2024-03-28 13:04] VITALS: BP 94/59
[2024-03-28] MEDS ORDERED: N-Acetylcysteine 600 MG CAP PO SCH (15:00)
[2024-03-28 15:35] VITALS: BP 132/74
--- NOTE | 2024-03-28 16:31 | NUR ---
SHIFT SUMMARY THIS RN ASSUMED CARE AT APPROX 0715. NO ACUTE EVENTS SINCE ASSUMPTION OF CARE. PATIENT ALERT AND ORIENTED X4. COMMUNICATING NEEDS EFFECTIVELY. INDEPENDENT IN ROOM - CALLS APPROPRIATELY FOR ASSISTANCE PRN. SHOWERED THIS AFTERNOON. VSS. TELEMETRY SHOWING SINUS 70s-90s PER TOBACCO DRIER OPERATOR - NO EVENTS REPORTED. SBP 90s-130s. MAP >65. DENIES CHEST PAIN, PRESSURE. +2 EDEMA TO BLE - IV LASIX ADMINISTERED PER EMAR. 1200ML FLUID RESTRICTION IN PLACE - PATIENT COMPLIANT. ON 5-7L VIA NC, SATs 88-94%. MILD SHORTNESS OF BREATH WITH MOBILITY. AWAITING CT PE STUDY TO BE COMPLETED THIS AFTERNOON. VOIDING. UP IN RECLINER MAJORITY OF THE DAY. CALL LIGHT IN REACH.
[2024-03-28 19:26] VITALS: BP 129/73
[2024-03-28] MEDS ORDERED: LevoFLOXacin 750 MG/D5W 150ML 150 ML IV ONE (20:00)
--- NOTE | 2024-03-29 00:26 | NUR ---
TRANSFER FROM ROOM 210 TO 364. REPORT GIVEN TO MARTHA DE SOUZA. BELONGINGS GATHERED ALONG WITH MEDS AND CHART. HR ASSISTANT NOTIFIED OF ROOM CHANGE.
--- NOTE | 2024-03-29 00:40 | NUR ---
PT TRANSFER NOTE 43 R OLD MALE TRANSFERRED TO UNIT FROM SURGICAL UNIT WITH DX OF HYPOXIA. PT ON O2. ALERT TO QUSTIONS ASKED. VSS. CALL LIGHT IN REACH. RAILS UP X 2 AND BED IN LOW POSITION FO SAFETY. WILL MONITOR.
--- NOTE | 2024-03-29 03:28 | NUR ---
COAT FELLER SUMMARY VSS. WAS TRANSFERRED TO FLOOR FROM SURGICAL UNIT WITH DX OF HYPOXIA. PLACED ON BIPAP WITH O2 LEAD IN - MONITORED BY RT. O2 WHEN AWAKE IS 7L/ MIN PER NC OTHERWISE. HOB ELEVATED FOR RESP COMFORT. UP AD RADHA, USES CALL LIGHT WHEN NEED OOB TO GO TO THE BATHROOM. ABLE TO REPOSITION SELF IN BED WITHOUT ASSIST. HAS BEEN RESTING WITH OCCASIONAL INTERRUPTIONS DUE TO BIPAP ALARM WHEN SATS DROP. CALL LIGHT IN REACH, RAILS UP X 2 AND BED IN LOW POSITOIN FOR SAFETY. WILL CONT TO MONITOR
[2024-03-29 04:05] VITALS: BP 137/84
[2024-03-29] MEDS ORDERED: rOPINIRole HCl 0.25 MG Tab PO PRN (05:10)
[2024-03-29] MEDS ORDERED: FentaNYL Citrate 50 MCG/ML 2 ML Injection IV PRN (05:10)
[2024-03-29 05:12] LABS: Bun/Creatinine Ratio 26.7 (12.0-20.0); Calcium, Blood 8.9 mg/dL (8.5-10.1); Creatinine, Blood 0.98 mg/dL (0.60-1.20); Potassium, Blood 4.3 mmol/L (3.5-5.5)
[2024-03-29 07:57] VITALS: BP 130/70
[2024-03-29] MEDS ORDERED: Furosemide 10 MG/ML 4ML Vial IV SCH (09:00)
[2024-03-29] MEDS ORDERED: Cyclobenzaprine HCl 10 MG Tab PO PRN (10:10)
[2024-03-29 15:29] VITALS: BP 106/61
--- NOTE | 2024-03-29 16:57 | NUR ---
PATIENT IS ALERT AND ORIENTED AND COOPERATIVE WITH CARE. ON 5L O2 VIA NC AT THIS TIME AT 94%. STARTED THE SHIFT ON 7L VIA NC. CONT. PULSE OX IN PLACE. UP IN THE CHAIR SINCE 06:00. INDEPENDENT TO THE BATHROOM, USES THE URINAL. POWERGLIDE WAS PPLACED THIS MORNING. THE PATINT'S DAUGHTER WAS AT THE BEDSIDE MOST OF THE SHIFT, PLAYING CARDS WITH THE PATIENT. VSS. RT FOLLOWING. WILL CONTINUE TO MONITOR
[2024-03-29 20:00] VITALS: BP 104/70
[2024-03-29] MEDS ORDERED: LevoFLOXacin 750 MG/D5W 150ML 150 ML IV SCH (21:00)
[2024-03-30 03:32] VITALS: BP 136/80
--- NOTE | 2024-03-30 03:34 | NUR ---
RUBBER GOODS INSPECTOR SUMMARY VSS. REMAINS ON O2 PER NC WHILE UP IN BEDSIDE CHAIR, AND ON BIPAP/CPAP AT NIGHT SHILE IN BED WITH O2 BLEED IN. INTERMITTENT RAVI, ENCOURAGED TO TAKE DEEP BREATHS WHEN O2 SATS DROP AND ALARM GOES OFF. UP TO BATHROOM AD RADHA. ABLE TO REPOSITION SELF IN BED WIHTOUT ASSIST, BUT ASKS FOR ASSIST ANY WAY. OTHERWISE HAS BEEN RESTING IN BED WITH FEW INTERRUPTIONS. CALL LIGHT IN REACH, RAILS UP X 2 AND BED IN LOW POSITION FOR SAFETY. WILL CONT TO MONITOR
[2024-03-30] MEDS ORDERED: Pantoprazole Sodium 20 MG Tab PO SCH (06:00)
[2024-03-30 06:49] LABS: Bun/Creatinine Ratio 27.1 (12.0-20.0); Calcium, Blood 9.2 mg/dL (8.5-10.1); Creatinine, Blood 0.92 mg/dL (0.60-1.20); Potassium, Blood 4.6 mmol/L (3.5-5.5)
[2024-03-30 07:48] VITALS: BP 130/63
[2024-03-30] MEDS ORDERED: PredniSONE 20 MG Tab PO SCH (09:00)
[2024-03-30 15:02] VITALS: BP 106/66
--- NOTE | 2024-03-30 16:50 | NUR ---
SHIFT SUMMARY A&OX4, COOPERATIVE WITH CARE. NO ACUTE CHANGES THIS SHIFT. DENIES CP/PRESSURE, HEADACHE, OR DIZZINESS. SOB WITH EXERTION. LIORLY SATTING 92% ON 5L O2 VIA NC. USES CPAP AT NIGHT WITH 1OL BLEED IN. REPORTS THAT HE FEELS EXTRA TIRED TODAY. ABLE TO TRANSFER FROM BED TO CHAIR WITHOUT PHYSCIAL HELP. BLE PITTING EDEMA NOTED. LASIX ON BOARD. URINE OUTPUT ADEQUATE. 1200 TOTAL FLUID RESTRICTION; PATIENT COMPLIANT. DR ESCOTO DISCUSSED WITH PATIENT THAT HE WILL BE HERE FOR 2-3 MORE DAYS TO BE MONITORED. PATIENT V/U. PATIENT CURRENTLY ASLEEP IN CHAIR. CALL LIGHT WITHIN REACH.
[2024-03-30 19:38] VITALS: BP 109/66
[2024-03-30] MEDS ORDERED: LevoFLOXacin 750 MG Tab PO SCH (21:00)
[2024-03-30] MEDS ORDERED: Enoxaparin 40 MG/0.4 ML SYR SC SCH (21:00)
[2024-03-31 02:35] VITALS: BP 131/78
--- NOTE | 2024-03-31 03:23 | NUR ---
VEST BASTER SUMMARY VSS. MED TELE SR IN THE 'S. UP AD RADHA TO BATHROOM. ON O2 5L/NC, KEPT PULLING OFF NASAL CANNULA, VOICED "BLEEDING" FROM NOSTRILS (NOT SEEN BY NURSE). WAS ENCOURAGED TO KEEP O2 ON. LATER WHEN IN BED, ASKED FOR BIPAP TO BE PLACED. HAS BEEN RESTING QUIETLY WITH FEW INTERRUPTIONS. HOB ELEVATED FOR RESP COMFORT. WILL CONTINUE TO MONITOR.
[2024-03-31 06:07] LABS: Calcium, Blood 9.3 mg/dL (8.5-10.1); Creatinine, Blood 0.91 mg/dL (0.60-1.20); Magnesium, Blood 2.3 mg/dL (1.6-2.4); Potassium, Blood 4.1 mmol/L (3.5-5.5)
[2024-03-31 07:17] VITALS: BP 124/81
--- NOTE | 2024-03-31 16:55 | NUR ---
SHIFT SUMMARY PT AOX4, COOPERATIVE, ABLE TO MAKE NEEDS KNOWN. HAS SPENT MOST OF SHIFT UP IN CHAIR. ON 5L O2, SATTING APPROX 93%. CONTINENT, USING URINAL AND BATHROOM APPROPRIATELY. NOT EXPRESSED ANY PAIN NEEDS FOR SHIFT. STILL ON 1200 FLUID RESTRICTION AND IS WELL AWARE OF THIS. BED IN LOWEST POSITION, CALL LIGHT WITHIN REACH.
[2024-03-31 19:29] VITALS: BP 124/78
[2024-04-01 03:44] VITALS: BP 110/76
--- NOTE | 2024-04-01 06:14 | NUR ---
SHIFT SUMMARY PT AOX4. AT START OF SHIFT, PT WAS SITTING IN RECLINER WATCHING TV. PT WAS ON 4LNC SATURATING 92-95%. PT HAS CONTINUOUS PULSE OX. PT IS STANDBY ASSIST. GETTING TO BED, HE DESATURATED TO MID 80S, BUT BOUNCED BACK TO 90S ONCE IN BED. OVERNIGHT, PT HAD HIS CPAP ON, WITH SPO2 SITTING IN MID 90S. PT HAD NO COMPLAINTS OF PAIN OR NEW SOB. PT IS ON 1200ML FLUID RESTRICTION, AND PT HAS BEEN ABLE TO ADHERE TO IT OVERNIGHT. NO ACUTE EVENTS OVERNIGHT.
[2024-04-01 07:31] VITALS: BP 118/72
[2024-04-01 08:12] LABS: Albumin, Blood 3.4 g/dL (3.4-5.0); Anion Gap 11 mmol/L (3-11); Blood Urea Nitrogen 34 mg/dL (8-24); Bun/Creatinine Ratio 34.7 (12.0-20.0); CO2, Blood 37 mmol/L (21-32); Calcium, Blood 9.1 mg/dL (8.5-10.1); Chloride, Blood 97 mmol/L (98-108); Creatinine, Blood 0.98 mg/dL (0.60-1.20); Glomerular Filtration Rate 97 (60-); Glucose, Blood 99 mg/dL (70-99); Phosphorus, Blood 4.2 mg/dL (2.5-4.9); Potassium, Blood 3.9 mmol/L (3.5-5.5); Sodium, Blood 141 mmol/L (136-145)
[2024-04-01] MEDS ORDERED: LEVO750 PO (14:30)
[2024-04-01] MEDS ORDERED: VISBIOME 112.51 EACH PO (14:30)
[2024-04-01] MEDS ORDERED: ROPI.25 PO (14:31)
== END 2024-04-01 16:13 | disposition home or self-care (01) | DRG 291 ==
LOC: ER 16:24 → MEDS 21:03 → ERHOLD 21:03 → SURS 03-27 11:25 → MEDS 03-29 00:34
PROVIDERS: Internal Medicine; Nurse Practitioner Acute Care; Student in an Organized Health Care Education/Training Program; ADMIT Internal Medicine
DX: I11.0 Hypertensive heart disease with heart failure (principal); I50.33 Acute on chronic diastolic (congestive) heart failure; J96.01 Acute respiratory failure with hypoxia; J69.0 Pneumonitis due to inhalation of food and vomit; Z68.42 Body mass index [BMI] 45.0-49.9, adult; G47.33 Obstructive sleep apnea (adult) (pediatric); E11.9 Type 2 diabetes mellitus without complications; E66.01 Morbid (severe) obesity due to excess calories; R11.2 Nausea with vomiting, unspecified; G25.81 Restless legs syndrome; Z91.199 Patient's noncompliance with other medical treatment and regimen due to unspecified reason; Z79.84 Long term (current) use of oral hypoglycemic drugs; Z79.899 Other long term (current) drug therapy; Z79.811 Long term (current) use of aromatase inhibitors; Z88.0 Allergy status to penicillin; Z87.891 Personal history of nicotine dependence; Z87.09 Personal history of other diseases of the respiratory system; Z99.89 Dependence on other enabling machines and devices
CPT/HCPCS: 0202U; 36415; 71046; 71260; 80048; 80053; 80069; 82947; 83735; 83880; 84484; 85025; 85379; 93005; 93010; 94660; 94761; 94762; 99285-25; A9270; C1751; C8929; J1650; J1940; J1956; J2405; J2470; J7512; Q9957; Q9967